=== PATIENT | female | born 1990 | race Caucasian/White ===

== ENCOUNTER 2017-01-31 16:40 | Emergency (ER) | payer OTHER ==
[~2017-01-31] VITALS: Ht 170.2 cm; Wt 168.0 kg
[~2017-01-31 16:40] MED LIST: AMOXICILLIN500 MG PO; BACTRIM DS1 TAB PO; CORTISPORIN OTI10 M2 AD; KEFLEX500 M1 PO; LABETALOL100 MG PO; LEVOTHYROXIN100 MCG PO; MIRENA IU; NO HOME MEDS; OB COMPLET2 PO; SYNTHROID25 MCG PO; TAM75CAP OR; TAM75CAP PO; ZITHROMAX250 MG PO
[2017-01-31] MEDS ORDERED: AMOXICILLIN500 MG PO (17:42)
[2017-01-31] MEDS ORDERED: ULTRAM50 M1 PO (17:42)
[2017-01-31 17:50] VITALS: BP 129/74
== END 2017-01-31 17:50 | disposition home or self-care (01) | DRG 563 ==
LOC: ED 16:40
DX: S93.402A Sprain of unspecified ligament of left ankle, initial encounter (principal); H60.91 Unspecified otitis externa, right ear; X50.1XXA Overexertion from prolonged static or awkward postures, initial encounter; Y92.89 Other specified places as the place of occurrence of the external cause

== ENCOUNTER 2017-05-09 20:59 | Emergency (ER) | payer SELFPAY ==
[~2017-05-09] VITALS: Ht 170.2 cm; Wt 177.6 kg
[~2017-05-09 20:59] MED LIST changes: +ULTRAM50 M1 PO
[2017-05-09 23:21] LABS: HEMATOCRIT 40.1 % (37.0-47.0); HEMOGLOBIN 12.9 g/dl (12.0-16.0); IMMATURE GRANULOCYTES 0.1 % (0.0-1.0); MEAN CELL VOLUME 89.3 fL CALC (80.0-100.0); MEAN CORPUSCULAR HGB 28.7 pG CALC (26.0-32.0); MEAN CORPUSCULAR HGB CONC 32.2 g/L CALC (32.0-36.0); NEUT# 5.03 thou/uL (2.00-7.15); RED BLOOD COUNT 4.49 mill/uL (4.20-5.60); RED CELL DISTRI WIDTH 13.5 % (11.5-15.5)
[2017-05-09 23:35] LABS: ALBUMIN 4.2 g/dL (3.2-5.0); ALKALINE PHOSPHATASE 73 u/l (38-126); ANION GAP 17 (6-22 (CALC)); BILIRUBIN, TOTAL 0.5 mg/dL (0.0-1.4); BUN 11 mg/dL (7-17); BUN/CREATININE RATIO 13 (12-20 (CALC)); CALCIUM 8.9 mg/dL (8.4-10.2); CARBON DIOXIDE 23 mmol/l (22-30); CHLORIDE 104 mmol/l (95-108); CREATININE 0.9 mg/dL (0.5-1.0); GFR > 60 ML/MIN (>=60 (CALC)); GFR FOR AFR.AMER. > 60 ML/MIN (>=60 (CALC)); GLUCOSE 90 mg/dL (65-105); POTASSIUM 4.1 mmol/l (3.5-5.1); SGOT/AST 43 u/l (14-36); SGPT/ALT 59 u/l (9-52); SODIUM 140 mmol/l (137-146); TOTAL PROTEIN 7.1 g/dL (6.3-8.2)
[2017-05-10 03:18] VITALS: BP 138/75
== END 2017-05-10 03:18 | disposition home or self-care (01) | DRG 998 ==
LOC: ED 20:59
PROVIDERS: Emergency Medicine
DX: O26.899 Other specified pregnancy related conditions, unspecified trimester (principal); R07.89 Other chest pain

== ENCOUNTER 2020-11-28 11:10 | Emergency (ER) | payer OTHER ==
[~2020-11-28] VITALS: Ht 170.2 cm; Wt 204.0 kg
[2020-11-28 15:52] LABS: HEMATOCRIT 43.7 % (37.0-47.0); HEMOGLOBIN 13.2 g/dl (12.0-16.0); IMMATURE GRANULOCYTES 0.4 % (0.0-5.0); MEAN CELL VOLUME 91.6 fL CALC (80.0-100.0); MEAN CORPUSCULAR HGB 27.7 pG CALC (26.0-32.0); MEAN CORPUSCULAR HGB CONC 30.2 g/dL CAL (32.0-36.0); NEUT# 4.71 thou/uL (2.00-7.15); RED BLOOD COUNT 4.77 mill/uL (4.20-5.60); RED CELL DISTRI WIDTH 14.7 % (11.5-15.5)
[2020-11-28 16:16] LABS: ALBUMIN 4.5 g/dL (3.2-5.0); ALKALINE PHOSPHATASE 75 u/l (38-126); ANION GAP 9 (6-22 (CALC)); BILIRUBIN, TOTAL 0.7 mg/dL (0.0-1.4); BUN 12 mg/dL (7-17); BUN/CREATININE RATIO 16 (12-20 (CALC)); CHLORIDE 100 mmol/l (95-108); CREATININE 0.7 mg/dL (0.5-1.0); GFR > 60 ML/MIN (>=60 (CALC)); GFR FOR AFR.AMER. > 60 ML/MIN (>=60 (CALC)); LIPASE 38 u/l (23-300); POTASSIUM 4.1 mmol/l (3.5-5.1); SGOT/AST 31 u/l (14-36); SODIUM 137 mmol/l (137-146); TOTAL PROTEIN 7.8 g/dL (6.3-8.2)
[2020-11-28 16:17] LABS: CARBON DIOXIDE 32 mmol/l (22-30)
[2020-11-28 16:21] LABS: ACT PARTIAL THROMBO TIME 26.4 SECONDS (20.0-32.5); PROTHROMBIN TIME 9.6 SECONDS (9.0-12.5)
[2020-11-28 17:44] VITALS: BP 153/76
== END 2020-11-28 17:45 | disposition short-term general hospital (02) | DRG 103 ==
LOC: ED 11:10
DX: R51.9 Headache, unspecified (principal); M54.2 Cervicalgia; M54.9 Dorsalgia, unspecified; E66.9 Obesity, unspecified; V59.40XA Driver of pick-up truck or van injured in collision with unspecified motor vehicles in traffic accident, initial encounter